=== PATIENT | male | born 1965 | race Caucasian/White ===

== ENCOUNTER 2018-06-04 00:42 | Inpatient (IN) | payer SELFPAY ==
[2018-06-04] VITALS (15 sets, daily range): BP systolic 109–156; BP diastolic 65–97; PULSE 83–116; RESP 16–18; TEMP 36.1–37.8; O2SAT 89–96; BMI 20.2; BMI 28.3; BMI 28.5
--- NOTE | 2018-06-04 00:59 | CT_ITS ---
STUDY: CT ABDOMEN AND PELVIS WITH CONTRAST REASON FOR EXAM: Male, 52 years old. Right lower quadrant pain, fever, nausea, vomiting, symptoms getting worse. RADIATION DOSAGE (If Supplied By Facility): CTDIvol = ( 21.66 ) mGy, DLP = ( 1135.67 ) mGycm TECHNIQUE: Transaxial images were obtained from the dome of the diaphragm to the symphysis pubis with oral contrast. 100ML ml of Isovue 300 contrast was administered. Sagittal and coronal images were reconstructed. Individualized dose optimization techniques were used for this CT. COMPARISON: None. FINDINGS: Bilateral lower lobe subsegmental atelectasis. The visualized portions of the heart are within normal limits. Small hiatal hernia. Normal liver. Normal gallbladder and extrahepatic biliary system. Normal spleen. Normal pancreas. Normal bilateral adrenal glands. Normal right kidney. Normal left kidney. Normal visualized stomach. Normal small intestine. Terminal ileum is not thickened. Scattered colonic diverticulosis. The appendix is retrocecal and enlarged measuring 1.1 cm in transverse dimension. There are extensive periappendiceal inflammatory changes, compatible with acute appendicitis. The appendix is well seen on coronal image 49 and axial image 83. Extensive periappendiceal inflammatory changes right lower quadrant axial images 63 through 89. No evidence of an abscess. No intra-abdominal free air. Minimal ascites right paracolic gutter. Normal abdominal aorta. Normal inferior vena cava. Normal retroperitoneum. Normal urinary bladder. Prostate gland is not enlarged. Normal abdominal wall. Normal osseous structures. CT/Abdomen/Pelvis WITH Contrast IMPRESSION: Acute appendicitis with extensive periappendiceal inflammatory changes without evidence of an abscess or intra-abdominal free air. The appendix is retrocecal. Small hiatal hernia. Minimal colonic diverticulosis. N.B. : The above information has been verbally conveyed by Marcus Mahoney MD to Lani Garcia MD, on 06/04/2018 03:44:34 (ET). Electronically Signed: Marcus Mahoney MD at 3:43 EST , Service support ,
--- NOTE | 2018-06-04 01:04 | ED.VISSUMM ---
- ER Visit Summary Date of Service: 06/04/18 Chief Complaint: Abdominal pain History of Present Illness: The patient is a 52 M presenting with abdominal pain. He states this started on . He has had nausea, vomiting, diarrhea. He has had fever up to 102 and chills. He has had a decreased appetite. He denies blood in stool or emesis. He had 2-3 episodes of diarrhea today. No vomiting since Monday. He denies chest pain or shortness of breath. Physical Examination: Vitals are stable. Patient is afebrile. Alert no acute distress. HEENT exam is unremarkable. Neck is supple. Lungs are clear and equal bilaterally. Heart is regular rate and rhythm. Abdomen is soft right lower quadrant tenderness with no rebound or guarding Extremities are unremarkable. Skin is warm and dry. No focal neurologic deficit. Remainder of exam is unremarkable. Emergency Department Course and Treatment: Patient given morphine, Zofran, IV fluids. CBC shows white count of 10.8, 85% segs. Chemistries shows sodium 133, glucose 204, creatinine 1.37. Urinalysis is unremarkable. CT abdomen pelvis with IV and oral contrast shows acute appendicitis with extensive periappendiceal inflammatory changes without evidence of an abscess or intra-abdominal free air. The appendix is retrocecal. He was given Zosyn IV. Discussed with Dr. Looney. Patient will be evaluated in the ER by Dr. Looney Disposition: To OR Impression: Acute appendicitis This note was generated with [employer] dictation software. It may contain incorrect words, spelling, and punctuation that were not noted in review of the chart prior to signing ED Disposition - Plan for ED Patient: Chief Complaint: Abd Pain Referrals: NOT,DEFINED [NON-STAFF] -
[2018-06-04 01:10] LABS: Absolute Lymphocyte Count 0.76 X10^3/ul (0.83-4.51); Absolute Neutrophil Count 9.2 X10^3/uL (2.0-7.7); Basophil# 0.01 X10^3/uL; Basophil% 0.1 % (0-1); Eosinophil# 0.04 X10^3/uL; Eosinophils% 0.4 % (0-5); Hematocrit 42.1 % (40-54); Hemoglobin 14.4 g/dl (13.0-16.5); Lymphocyte # 0.76 X10^3/ul (4.0); Mean Corp Hgb Conc 34.2 g/gl (32-36); Mean Corpuscular Hgb 29.8 pg (27.0-32.0); Mean Corpuscular Volume 87.2 fL (80-94); Mean Platelet Vol. 10.3 fl (6.2-12.0); Monocyte# 0.78 X10^3/uL; Monocyte% 7.2 % (0-10); Neutrophil # 9.19 X10^3/uL (2.7-7.7); Platelet Count 263 K/mm3 (150-450); RBC Distribution Width CV 12.6 % (11.6-14.6); RBC Distribution Width SD 39.9 fl (35.1-43.9); Red Blood Count 4.83 M/mm3 (4.6-6.2); White Blood Count 10.8 K/mm3 (4.4-11.0)
[2018-06-04] MEDS: 0.9% Normal Saline 1,000 ML 1000 ML IV (01:10)
[2018-06-04] MEDS: Ondansetron 4 MG/2 ML Vial IV (01:10)
[2018-06-04] MEDS: Morphine 4 MG/ML Syringe IV ×2 (01:12→04:51)
[2018-06-04 01:17] LABS: Anion Gap 9 (5-15); BUN 18 mg/dL (7-18); BUN/Creat Ratio 13.1 RATIO (10-20); Calcium,Total 8.2 mg/dL (8.5-10.1); Chloride 103 mmol/L (98-107); Creatinine, Serum 1.37 mg/dL (0.70-1.30); EST Glomerular Filtration Rate 58 mL/min (>60); Est Glom Filt Rate - Afr Amer 70 mL/min (>60); Estimated Creatinine Clearance 69.23 ml/min; Glucose 204 mg/dL (74-106); Potassium 3.5 mmol/L (3.5-5.1); Sodium Level 133 mmol/L (136-145)
[2018-06-04 01:19] LABS: POSITIVE COUNT NO; POSITIVE DIFFERENTIAL NO; POSITIVE MORPHOLOGY NO
[2018-06-04 03:16] LABS: Bacteria 0 SEEN /hpf (None Seen); Mucous, Urine 0 SEEN /hpf (<or=2+); Red Blood Cells-Urine 0 SEEN /hpf (0-5); Squamous Epithelial Cells - UA 0 SEEN /hpf (0-5); White Blood Cells 0 SEEN /hpf (0-5)
[2018-06-04 03:24] LABS: Color, Urine Yellow (Yellow); Glucose, Dipstick Normal (Normal); Ketone-Dipstick Negative (Negative); Leukocyte Esterase-Dipstick Negative /ul (Negative); Nitrite-Dipstick Negative (Negative); Occult Blood-Urine Negative /ul (Negative); Protein-Dipstick Negative (Negative); Specific Gravity, Urine 1.005 (1.002-1.030); Urine Bilirubin Dipstick Negative (Negative); Urine Clarity Clear (Clear); Urine Urobilinogen 1 mg/dl (Normal); Urine pH 6.5 (5.0 - 8.0)
[2018-06-04] MEDS: Piperacil/Tazobactam 3.375 GM/50 ML ML IV ×3 (04:07→21:08)
--- NOTE | 2018-06-04 04:31 | EKG12_ITS ---
Test Reason : PRE-OP Blood Pressure : / mmHG Vent. Rate : 076 BPM Atrial Rate : 076 BPM P-R Int : 176 ms QRS Dur : 088 ms QT Int : 400 ms P-R-T Axes : 037 -08 -05 degrees QTc Int : 450 ms Normal sinus rhythm Moderate voltage criteria for LVH, may be normal variant Inferior infarct , age undetermined Abnormal ECG Confirmed by ROYCE LOUIS, SRAVANTHI ([id number]), avid editor HENRY RIOS ([id number]) on 06/06/2018 1:05:40 PM Referred By: DR PAL Confirmed By:SRAVANTHI CRANE MD
--- NOTE | 2018-06-04 04:38 | ED.RN ---
NO OLD EKGS IN MUSE
--- NOTE | 2018-06-04 04:38 | PCM.HP.BLA ---
History and Physical Date of Admission: 06/04/18 Chief Complaint: abdominal pain History of Present Illness: 52 y/o WM presents to [facility] ED with complaint of right lower quadrant abdominal pain. States that he has had pain since late or early Monday. Also had nausea and emesis. Had temp to 102F. Thought it was a stomach virus. Couldn't get out of bed for most of the weekend. Also noted diarrhea. Finally was convinced by to go to ED. WBC normal but positive left shift of differential, temp of 99.1F CT scan - large amount of inflammation in right lower quadrant with dilated appendix Past Medical History: denies major medical illnesses Past Surgical History: teeth pulled Past Injuries: right ankle fracture Medications: denies taking chronic medications Allergies: Has no known drug allergies, allergic to bees Social history: TOB use denies lives with Review of Systems: General - fevers to 102F Cardiovascular denies chest pain, denies history of heart attack Pulmonary denies shortness of breath, denies coughing up blood Gastrointestinal as per HPI, denies blood in stools Neurological denies numbness/weakness of extremities, denies seizures, denies history of stroke Genitourinary denies burning with urination, denies blood in urine Hematological denies spontaneous/prolonged bleeding, denies history of bransfusions, denies history of deep venous thromboses and/or pulmonary emboli Skin denies open nonhealing wounds Musculoskeletal had right ankle fracture in past, occasional back pain Endocrine denies diabetes Psychological denies hallucinations Physical examination: Vital signs Temp 99.1F HR 89 BP 132/75 RR 16 General WD/WN WM in no apparent distress, alert and oriented, not septic appearing HEENT Normocephalic. EOM intact with sclera clear and no icterus noted. Wearing glasses. Neck is supple with no jugular venous distention noted. Trachea is midline. Lungs clear to auscultation. normal breath sounds in all lung cervantes. No rales/rhonchi/wheezing noted. No labored breathing noted, such as retractions. No cough heard. Heart normal S1 and S2 auscultated. No rubs/clicks/murmurs noted. Normal size and location by auscultation. Abdomen soft but tender in right lower quadrant with rebound, no bowel sounds noted, Extremities no calf tenderness noted. No pitting edema noted. Genitourinary/Rectal deferred Skin normal skin integrity. Neurological no focal deficits noted Psychological normal affect, patient is calm and appropriate Impression: acute appendicitis DIscussion/Plan: I have discussed the above with the patient and his who is present with him. Patient presents with acute appendicitis, this may be perforated, given timing and appearance of CT scan. I have offered the patient the procedure of laparoscopic appendectomy. I have explained the procedure to the patient. I have counseled the patient as to the risks of the procedure, including but not limited to: infection, bleeding, injury to any blood vessels/nerves, scar tissue, injury to any intraabdominal organs, injury to kidney/ureters, injury to bowel/bladder, intraabdominal abscess/bleeding, hernias at incisional sites, wound infections, possible open procedure, complications of anesthesia, postoperative pneumonia/cardiac problems/blood clots etc. the patient understands. He agrees to proceed. I have answered all questions to the patient?s satisfaction and the patient has no further questions.
--- NOTE | 2018-06-04 05:54 | PCM.IMDPSTOP ---
Immediate Post-Op Note Date of Procedure: 06/04/18 Primary Surgeon/Physician: Alexandria Looney insurance administrative assistant: NOT,DEFINED Pre-Operative Diagnosis: acute appendicitis Post-Operative Diagnosis: perforated appendicitis with localized peritonitis and phlegmon Surgery/Procedure Performed:: Laparoscopic appendectomy Description of Surgical Findings:: perforated appendicitis with localized peritonitis and phlegmon, gangrenous wall Estimated Blood Loss: < 10 Specimen's removed: appendix Type of Anesthesia:: General ASA Class: ASA1 Plus Emergency - Admit VTE Documentation VTE Present on Admission: Yes VTE Mechan Device Prophylaxis: SCD's
[2018-06-04] MEDS: Bupiv/Epi 0.5% Mpf 30 ML Vial (06:54)
--- NOTE | 2018-06-04 06:56 | PCM.OPRPT ---
Report of Operation Date of Procedure: 06/04/18 Pre-Operative Diagnosis: acute appendicitis Post-Operative Diagnosis: perforated appendicitis with localized peritonitis and phlegmon Surgery/Procedure Performed:: Laparoscopic appendectomy Description of Surgical Findings:: perforated appendicitis with localized peritonitis and phlegmon, gangrenous wall fabrication and assembly supervisor: NOT,DEFINED Type of Anesthesia:: General Anesthesiologist: Roxane Carroll Specimen's removed: appendix Drains: 15 Fr passive drain in right gutter and pelvis Estimated Blood Loss (mL): < 10 Fluids Replaced: 1000 ml RL Description of Procedure: After informed consent was obtained, the patient was brought into the operating room. Appropriate time out protocol was followed. He was then placed in the supine position on the operating table. The patient was then placed under general anesthesia. The patient?s abdomen was then prepped with a sterile surgical skin preparation and sterile surgical drapes were placed. The infraumbilical skin fold was grasped with penetrating clamps and the skin and subcutaneous tissues were infiltrated with 0.5% marcaine with epinephrine. A skin incision was then made. A Veress needle was then inserted into the intraabdominal cavity and checked to be in the proper position with a normal saline drop test. A CO2 pneumoperitoneum was then created. Once this was achieved, the Veress needle was removed and a 5 mm trocar was placed in its stead. A 5 mm laparoscope was then inserted into the trocar. Careful examination of the intraabdominal contents was then done. There was no evidence of injury to any internal organs from placement of the Veress needle or the trocar. Under direct visualization, a 12mm suprapubic trocar and a 5mm slightly left lower quadrant trocar was then placed into the intraabdominal cavity. The skin and subcutaneous tissues at these sites were first infiltrated with 0.5% marcaine with epinephrine. Attention was then directed to the right lower quadrant. The appendix was not visualized. There was a large inflammatory phlegmon in the right lower quadrant. There was surrounding cloudy peritoneal fluid. Blunt dissection was then done to separate the inflammatory mass which was then omentum covering over the appendix. The appendix was retrocecal and adherent to the cecal wall posteriorly. It took some time as blunt dissection was done to separate the inflamed and gangrenous appearing appendix from the cecal wall. The appendix was also noted to be ruptured as there was fecal material also noted. The mesentery of the appendix was taken down by cauterizing the tissue from the free edge to the base of the appendix with the harmonic scalpel. Once the base of the appendix was freed of surrounding tissues, then the linear gastrointestinal stapling device was brought into the abdominal cavity via the 12mm port and placed across the base of the appendix. The stapling device was fired, thus stapling across the base of the appendix and transecting it simultaneously. The appendix was then placed in an Endobag and this was brought out through the suprapubic trocar. The appendix was then forwarded to Pathology for analysis. The appendiceal stump was carefully examined. There was no evidence of any active bleeding or fecal leakage. Because of the peritonitis, the lower abdomen was vigorously irrigated with normal saline and all irrigant was aspirated out. No evidence of active bleeding was noted. A 15 Fr passive round catheter was brought in to the intraabdominal cavity via the suprapubic trocar site. It was directed into the pelvis and the tip placed up the right paracolic gutter. The CO2 pneumoperitoneum was released and all trocars were removed intact. The suprapubic fascia was reapproximated with a figure-of-8 vicryl suture, carefully avoiding suturing the drain in. The catheter was secured to the abdominal wall skin using 3-0 nylon suture. All skin incisions were reapproximated with monocryl suture. Cavilon and steristrips were applied to reinforce skin closure and proper sterile dressings were placed. The patient was then extubated and brought to the Recovery Room in stable condition. - Complications none noted - Admit VTE Documentation VTE Present on Admission: Yes VTE Mechan Device Prophylaxis: SCD's
--- NOTE | 2018-06-04 07:00 | APP_PTH ---
PATIENT: ROSA ELENA PINEDA LOC: [facility] U#:[id number] AGE/SX: 52/M ROOM: [facility]322 RE06/04/[address]: Dr. Alexandria Looney MD : 1965 BED: 1 DIS: 06/06/2018 SPEC #: [id number] RECD: 06/04/18 09:19 STATUS: CHANTELLE REJennifer #: [id number] CHRISTINA: 06/04/18 07:[address]: Alexandria Looney DEPT: SURGICAL PATHOLOGY RECD BY: Ronald Suárez ENTERED: 06/04/18 11:45 SP TYPE: APPENDIX OT DR: Netta Primary Care Phys Tissues: Appendix, NOS Procedures: Surgery Specimen Level III HEADER OPERATION: Laparoscopic, appendectomy PRE-OP DIAGNOSIS: Acute appendicitis TISSUE SUBMITTED: Appendix MICROSCOPIC DIAGNOSIS Appendix: Consistent with acute ruptured appendicitis and periappendicitis. SJ:cayden 06/05/18 MICROSCOPIC DESCRIPTION Slides are reviewed. GROSS DESCRIPTION Received is one container labeled with the patient's name and designated appendix. The specimen consists of an appendix measuring 6 cm in length and up to 0.6 cm in diameter. The attached periappendiceal adipose tissue measures up to 1.3 cm in width. The appendix is disrupted in the proximal portion of the specimen and may represent site of perforation. The serosa is congested and hemorrhagic The mucosa is congested and hemorrhagic. The lumen contains a small amount of fecal material. No fecalith is identified. Child Welfare Caseworker sections are submitted in one cassette. / ALYCIA:cayden 06/04/18 TC:2 CPT: 49642
[2018-06-04] MEDS: Lactated Ringers 1,000 ML 150 ML IV ×3 (09:39→21:12)
[2018-06-04] MEDS: HYDROcodone Bitartrate/Apap 5/325 Tablet PO ×2 (15:12→21:11)
--- NOTE | 2018-06-04 15:55 | PN.SURG_ITS ---
Subjective: patient feeling much improved, but still sore, ambulating in the hallways - Physical Exam General: Alert, Oriented x3 Abdomen: Soft, - - ADDIE output is serosanguinous Vital Signs Temp Pulse Resp BP Pulse Ox 98.5 F 97 18 119/73 94 06/04/18 15:13 06/04/18 15:13 06/04/18 15:13 06/04/18 15:13 06/04/18 15:13 Oxygen Flow Rate (L/min) 2 Oxygen Delivery Method Nasal Cannula Weight: 95.7 kg Body Mass Index (BMI) 28.5 Intake and Output for Last 24 Hours 06/03/18 06/03/18 06/04/18 00:59 23:59 23:59 Intake Total 2316 / 2316 Output Total 720 / 720 Balance 1596 / 1596 Laboratory Tests Past 24 Hrs 06/04/18 06/04/18 06/04/18 00:40 00:40 03:15 WBC 10.8 RBC 4.83 Hgb 14.4 Hct 42.1 MCV 87.2 MCH 29.8 MCHC 34.2 RDW 12.6 RDW Differential 39.9 Plt Count 263 MPV 10.3 Immature Gran % (Auto) 0.300 Neut % (Auto) 85.0 H Lymph % (Auto) 7.0 L [place] % (Auto) 7.2 Eos % (Auto) 0.4 Baso % (Auto) 0.1 Absolute Neuts (auto) 9.2 H Absolute Lymphs (auto) 0.76 L Total Counted Not Reportable Sodium 133 L Potassium 3.5 Chloride 103 Carbon Dioxide 21.0 Anion Gap 9 BUN 18 Creatinine 1.37 H Estim Creat Clear Calc 69.23 Est GFR (MDRD) Af Amer 70 Est GFR (MDRD) Non-Af 58 L BUN/Creatinine Ratio 13.1 Glucose 204 H Calcium 8.2 L Urine Color Yellow Urine Clarity Clear Urine pH 6.5 Ur Specific [place] 1.005 Urine Protein Negative Urine Glucose (UA) Normal Urine Ketones Negative Urine Occult Blood Negative Urine Nitrite Negative Urine Bilirubin Negative Urine Urobilinogen 1 H Ur Leukocyte Esterase Negative Urine RBC 0 SEEN Urine WBC 0 SEEN Ur Squamous Epith Cells 0 SEEN Urine Bacteria 0 SEEN Urine Mucus 0 SEEN Medical Necessity - Tobacco Use Smoking Status: Never smoker Assessment/Plan Impression: day of surgery - laparoscopic appendectomy for perforated appendicitis Plan: continue antibiotics for at least another 24 hours maintain ADDIE drain. encourage ambulation and incentive spirometry
[2018-06-04] MEDS: Morphine 2 MG/ML Syringe IV (23:47)
[2018-06-05] MEDS: Lactated Ringers 1,000 ML 150 ML IV ×4 (03:58→23:58)
[2018-06-05 04:18] VITALS: BP 136/83; PULSE 93; RESP 18; TEMP 36.6; O2SAT 97
[2018-06-05] MEDS: Piperacil/Tazobactam 3.375 GM/50 ML ML IV ×3 (05:05→22:04)
--- NOTE | 2018-06-05 07:40 | PCM.PN.SRG ---
Subjective: patient feeling well, feels sore all over passing flatus, urinating well - Physical Exam General: Oriented x3 Oral: Moist Mucosa Neck: Supple Lungs: Normal air movement Abdomen: Soft, - - dressing intact - no seepage ADDIE output is serosanguinous, albeit slightly cloudy Vital Signs Temp Pulse Resp BP Pulse Ox 97.9 F 93 18 136/83 H 97 06/05/18 04:18 06/05/18 04:18 06/05/18 04:18 06/05/18 04:18 06/05/18 04:18 Oxygen Flow Rate (L/min) 2 Oxygen Delivery Method Room Air Weight: 95.7 kg Body Mass Index (BMI) 28.5 Intake and Output for Last 24 Hours 06/03/18 06/04/18 06/05/18 23:59 23:59 23:59 Intake Total 4842 / 4842 916 / 916 Output Total 2860 / 2860 460 / 460 Balance 1981 / 1981 456 / 456 Medical Necessity - Tobacco Use Smoking Status: Never smoker Assessment/Plan Impression: POD#1 - laparoscopic appendectomy for perforated appendicitis Plan: continue antibiotics for another day, probable discharge tomorrow advance diet to regular maintain ADDIE drain. encourage ambulation and incentive spirometry
[2018-06-05 07:42] VITALS: BP 132/74; PULSE 91; RESP 18; TEMP 36.6
[2018-06-05] MEDS: HYDROcodone Bitartrate/Apap 5/325 Tablet PO (07:53)
--- NOTE | 2018-06-05 10:51 | CASEMGMT ---
RN CM Assessment Note Intro role of CM to patient in room. Pt presented to ER with abd pain, was taken for emergency appendectomy for perf jamey. PCP: None. List of area PCP's given to pt Pharmacy: pt requested [facility] in [place], but if hospital pharmacy assist program is needed, can fill @ [facility]. Insurance: none. 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 He states he is reviewing options, but has not applied for any yet. Plans to look into this further on dc. States PFS gave him financial information also. DME: none Living arrangements: Lives independently, denies concerns. Transportation: pt drives DC PLAN: Home on discharge
--- NOTE | 2018-06-05 11:45 | CASEMGMT ---
Social Work Note SW met with pt as pt is listed as self-pay. Pt confirms that he has no insurance. 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 SW asked pt about Medicaid application. Pt states that he hasn't filled one out and thinks that he may make too much for Medicaid but is willing to take application and fill out at later time. SW provided pt with Medicaid application. SW provided pt with additional resources including people to people, [facility], Brenda French and prescription assistance resources. Pt denied additional needs or concerns at this time. Gale Waller BRANCH CONTROLLER, SALESFORCE ADMINISTRATOR
[2018-06-05] MEDS: Ibuprofen 600 MG Tablet PO ×2 (12:10→19:09)
[2018-06-05 14:53] VITALS: BP 132/83; PULSE 87; RESP 18; TEMP 36.6; O2SAT 92
[2018-06-05 21:24] VITALS: BP 125/76; PULSE 88; RESP 18; TEMP 36.7; O2SAT 96
[2018-06-06 03:04] VITALS: BP 130/68; PULSE 86; RESP 18; TEMP 36.7; O2SAT 95
[2018-06-06] MEDS: Piperacil/Tazobactam 3.375 GM/50 ML ML IV ×2 (05:45→14:35)
[2018-06-06] MEDS: Lactated Ringers 1,000 ML 150 ML IV (05:48)
[2018-06-06 08:48] VITALS: BP 138/90; PULSE 90; RESP 18; TEMP 36.6; O2SAT 95
[2018-06-06] MEDS: Ibuprofen 600 MG Tablet PO (08:54)
--- NOTE | 2018-06-06 09:04 | NURSING ---
DR PAL MADE AWARE OF PT MULTIPLE EPISODES OF DIARRHEA THIS AM. NEW ORDERS RECEIVED.
--- NOTE | 2018-06-06 12:33 | PCM.PN.SRG ---
Subjective: patient doing well, had bout of diarrhea - will check for c diff - Physical Exam General: Alert, Oriented x3 Oral: Moist Mucosa Neck: Supple Lungs: Normal air movement Abdomen: Soft, - - dressings intact ADDIE output is serous Vital Signs Temp Pulse Resp BP Pulse Ox 97.9 F 90 18 138/90 H 95 06/06/18 08:48 06/06/18 08:48 06/06/18 08:48 06/06/18 08:48 06/06/18 08:48 Oxygen Flow Rate (L/min) 2 Oxygen Delivery Method Room Air Weight: 95.7 kg Body Mass Index (BMI) 28.5 Intake and Output for Last 24 Hours 06/04/18 06/05/18 06/06/18 23:59 23:59 23:59 Intake Total 4842 / 4842 4537 / 4537 2452 / 2452 Output Total 2860 / 2860 2605 / 2605 1220 / 1220 Balance 1981 / 1981 1932 / 1932 1232 / 1232 Medical Necessity - Tobacco Use Smoking Status: Never smoker Assessment/Plan Impression: POD#2 - laparoscopic appendectomy for perforated appendicitis Plan: plan d/c today encourage ambulation and incentive spirometry
--- NOTE | 2018-06-06 12:33 | PCM.DC.APPY ---
Discharge Diet: No Restrictions - avoid carbonated beverages for a few days drink plenty of fluids, like water Discharge Activity: Return to Normal Activity, May not drive while taking narcotic pain medications. Lifting Restrictions: no liting greater than 20 pounds unti further notice Additional Activity Instructions:: sponge bathe only Call your doctor if your incision/area has: Continuous Slow Oozing, Foul Smelling Discharge Call your doctor if you observe: Fever of 101 or Higher Additional Dressing/Incision Instructions:: Leave dressings in place. Empty and reconstitute bulb drainage as instructed Medications to take at Discharge NK 06/04/18 Allergies/Adverse Reactions: Allergies bee venom protein (honey bee) Allergy (Verified 06/04/18 00:44) Anaphylaxis Primary Care Physician: NOT,DEFINED [NON-STAFF] - Test Results: Test results from this visit will be discussed in further detail at your follow-up appointment, if applicable. Please Follow Up With: Alexandria Looney MD - When: to be seen on , 9:50 am
--- NOTE | 2018-06-06 12:36 | DCINST_ITS ---
Discharge Diet: No Restrictions - avoid carbonated beverages for a few days drink plenty of fluids, like water Discharge Activity: Return to Normal Activity, May not drive while taking narcotic pain medications. Lifting Restrictions: no liting greater than 20 pounds unti further notice Additional Activity Instructions:: sponge bathe only Call your doctor if your incision/area has: Continuous Slow Oozing, Foul Smelling Discharge Call your doctor if you observe: Fever of 101 or Higher Additional Dressing/Incision Instructions:: Leave dressings in place. Empty and reconstitute bulb drainage as instructed Medications to take at Discharge NK 06/04/18 Allergies/Adverse Reactions: Allergies bee venom protein (honey bee) Allergy (Verified 06/04/18 00:44) Anaphylaxis Primary Care Physician: NOT,DEFINED [NON-STAFF] - Test Results: Test results from this visit will be discussed in further detail at your follow- up appointment, if applicable. Please Follow Up With: Alexandria Looney MD - When: to be seen on , 9:50 am
--- NOTE | 2018-06-06 12:37 | PCM.DC.BLA ---
Discharge Summary Date of Admission: 06/04/18 Date of Discharge: 06/06/18 Summary: 52 y/o WM presents with abdominal pain. workup in the ED revealed appendicitis. Underwent laparoscopic appendectomy on 06/04/18 - perforated appendicitis with phlegmon found - Physical Exam Vital Signs Temp Pulse Resp BP Pulse Ox 97.9 F 90 18 138/90 H 95 06/06/18 08:48 06/06/18 08:48 06/06/18 08:48 06/06/18 08:48 06/06/18 08:48 Oxygen Flow Rate (L/min) 2 Oxygen Delivery Method Room Air Weight: 95.7 kg Body Mass Index (BMI) 28.5 Intake and Output for Last 24 Hours 06/04/18 06/05/18 06/06/18 23:59 23:59 23:59 Intake Total 4842 / 4842 4537 / 4537 2452 / 2452 Output Total 2860 / 2860 2605 / 2605 1220 / 1220 Balance 1981 / 1981 1932 / 1932 1232 / 1232
[2018-06-06 14:38] VITALS: BP 138/87; PULSE 85; RESP 18; TEMP 37.1; O2SAT 97
[2018-06-06] MEDS: HYDROcodone Bitartrate/Apap 5/325 Tablet PO (14:43)
[2018-06-06 20:36] VITALS: BP 136/78; PULSE 86; RESP 18; TEMP 37.1; O2SAT 98
== END 2018-06-06 23:11 | disposition home or self-care (01) | DRG 340 ==
LOC: ED 01:11 → SDC 04:35 → AC 04:35 → MS3 04:44 → SDC 04:44
PROVIDERS: Admitting Provider Surgery; Emergency Provider Emergency Medicine; Visit Provider Surgery
PROC: 0DTJ4ZZ Resection of Appendix, Percutaneous Endoscopic Approach (ICD-10-PCS; CPT 44970; principal; 2018-06-04 07:00)
DX: K35.33 Acute appendicitis with perforation, localized peritonitis, and gangrene, with abscess (principal)
CPT/HCPCS: 74177; 80048; 81001; 85025; 87493; 88304; 93005; 99283; J7030; J7040; J7120; Q9967; A4216; J0330; J2405